=== PATIENT | male | born 1955 | race African-American/Black ===

== ENCOUNTER 2023-05-17 17:06 | Emergency (ER) | payer MEDICARE, MEDICAID ==
[~2023-05-17] VITALS: Ht 180.3 cm; Wt 95.0 kg
[2023-05-17 17:38] VITALS: BP 143/86; PULSE 78; RESP 16; TEMP 98.9; O2SAT 99
[2023-05-17] MEDS ORDERED: metformin (17:38)
[2023-05-17] MEDS ORDERED: lisinopril (17:38)
== END 2023-05-17 18:33 | disposition left against medical advice (07) ==
LOC: ER 17:06
DX: R42 Dizziness and giddiness (principal); R55 Syncope and collapse; E11.9 Type 2 diabetes mellitus without complications; I10 Essential (primary) hypertension
CPT/HCPCS: 93005; 99283